=== PATIENT | female | born 1980 ===

== ENCOUNTER 2016-12-04 12:04 | Emergency (ER) | payer OTHER ==
[2016-12-04 13:03] VITALS: BP 155/78
--- NOTE | 2016-12-04 13:35 | UC ---
Abdominal Pain Female HPI - HPI Summary HPI Summary: 36 yo female with ruq/epigastric pain x3-4 days nausea no vomitng anorexia attempts to eat make it worse no f/c constipated states when she took naproxen in the past it made her flu symptoms worse no true allergy no cp/sob PT HAS NO LOCAL MD - History of Current Complaint Chief Complaint: UCAbdominalPain Stated Complaint: STOMACH PAIN Time Seen by Provider: 12/04/16 13:07 Hx Last Menstrual Period: 11/25/16 Onset/Duration: Gradual Onset, Lasting Days Timing: Constant Severity Initially: Moderate Severity Currently: Moderate Pain Intensity: 8 Pain Scale Used: 0-10 Numeric Location: Discrete At: RUQ, Epigastric Radiates: Yes Radiates to: Back Character: Colicy Aggravating Factor(s): Food Alleviating Factor(s): Nothing Associated Signs and Symptoms: Positive: Decreased Appetite, Nausea Allergies/Adverse Reactions: Allergies Allergy/AdvReac Type Severity Reaction Status Date / Time Naproxen Allergy See Comment Verified 12/04/16 13:04 Home Medications: Home Medications Ibuprofen TAB* [Motrin TAB* 800 MG] 800 mg PO BID PRN 12/04/16 [History Confirmed 12/04/16] Sennosides [Laxative Pills Regular St] 15 mg PO DAILY PRN 12/04/16 [History Confirmed 12/04/16] Simethicone [Gas-X] 80 mg PO ONCE PRN 12/04/16 [History Confirmed 12/04/16] PMH/Surg Hx/FS Hx/Imm Hx Previously Healthy: Yes Cardiovascular History Of: Reports: Hypertension - Surgical History Surgical History: Yes Surgery Procedure, Year, and Place: x3 c section. tubal - Family History Known Family History: Positive: Hypertension - Social History Alcohol Use: Weekly Substance Use Type: Marijuana Smoking Status (MU): Heavy Every Day Tobacco Smoker Amount Used/How Often: 1 ppd Length of Time of Smoking/Using Tobacco: started age 18 Review of Systems Constitutional: Negative Skin: Negative Eyes: Negative ENT: Negative Respiratory: Negative Cardiovascular: Negative Gastrointestinal: Abdominal Pain Genitourinary: Negative Motor: Negative Neurovascular: Negative Musculoskeletal: Negative Neurological: Negative Psychological: Negative All Other Systems Reviewed And Are Negative: Yes Physical Exam Triage Information Reviewed: Yes Appearance: Well-Appearing, No Pain Distress Vital Signs: Initial Vital Signs Temp 98.0 F 12/04/16 12:59 Pulse 62 12/04/16 12:59 Resp 14 12/04/16 12:59 BP 155/78 12/04/16 12:59 Pulse Ox 95 12/04/16 12:59 Vital Signs Reviewed: Yes Eyes: Positive: Conjunctiva Clear ENT: Positive: Hearing grossly normal. Negative: Nasal congestion, Nasal drainage, Trismus, Muffled/hoarse voice Neck: Positive: Supple, Nontender, No Lymphadenopathy Respiratory: Positive: Lungs clear, Normal breath sounds, No respiratory distress, No accessory muscle use Cardiovascular Exam: Normal Cardiovascular: Positive: RRR Abdomen Description: Positive: Soft. Negative: Nontender - ruq/epigastric tenderness, Distended, Guarding, Hernia @, Hepatomegaly, McBurney's Point Tenderness, Peritoneal Signs, Pulsatile Mass, Splenomegaly Bowel Sounds: Positive: Present Musculoskeletal: Positive: ROM Intact, No Edema Neurological: Positive: Alert Psychological Exam: Normal Skin Exam: Normal Re-Evaluation - Re-Evaluation First Eval Re-Evaluation Time: 14:51 Change: Improved - PAIN NOW 2-12/13 Abd Pain Female Course/Dx - Differential Dx/Diagnosis Provider Diagnoses: CHOLECYSTITIS Discharge - Discharge Plan Condition: Stable Disposition: AGAINST MEDICAL ADVICE Prescriptions: HYDROcodone/ACETAMIN 5-325 MG* [[facility] 5-325 TAB*] 1 tab PO Q4H PRN #15 tab MDD 6 PRN Reason: Pain Ondansetron TAB* [Zofran Tab*] 4 mg PO Q6H PRN #10 tab PRN Reason: Nausea Patient Education Materials: Cholecystitis (ED) Referrals: Mervin Tijerina MD [Medical Doctor] - As Soon As Possible Additional Instructions: YOUR ULTRASOUND SHOWED: A 3.3 CM STONE AT THE GALLBLADDER NECK A LOT OF BILIARY SLUDGE A THICKENED GALL BLADDER WALL YOU NEED TO SEE A SURGEON TAKE COPIES OF ULTRASOUND WITH YOU TO ER FOR: INCREASED PAIN VOMITING FEVER IF YOU CAN NOT MAKE A TIMELY APPT CALL US BACK YOU MIGHT WANT TO TAKE A STOOL SOFTENER AT BEDTIME (LIKE COLACE)
[2016-12-04] MEDS ORDERED: Ketorolac INJ* 30 MG/ML 1 ML VIAL IM ONE (13:40)
--- NOTE | 2016-12-04 14:34 | RAD ---
Indication: Epigastric RIGHT upper quadrant pain. Constipation. Comparison: None. Technique: RIGHT upper quadrant ultrasound. Report: 18.3 cm normal echotexture liver. No focal hepatic lesions or biliary dilatation. 5.8 mm common bile duct. Distended gallbladder with large volume of biliary sludge and a 3.3 cm nonmobile appearing stone at the level of the gallbladder neck. 3.9 mm thickened gallbladder wall. Negative for pericholecystic fluid. Positive for sonographic Neves's sign. Unremarkable pancreas. Negative for ascites. Unremarkable 12.8 cm RIGHT kidney. IMPRESSION: The constellation of findings is concerning for early acute cholecystitis. Negative for associated biliary dilatation. Correlate with clinical assessment.
[2016-12-04 19:23] LABS: Hematocrit 44 % (35-47); Hemoglobin 14.6 g/dl (12.0-16.0); Mean Corpuscular HGB Conc 33 g/dl (31-36); Mean Corpuscular Hemoglobin 31 pg (27-31); Mean Corpuscular Volume 93 fL (80-97); Mean Platelet Volume 8 um3 (7.4-10.4); Red Blood Count 4.72 10^6/ul (4.0-5.4); Red Cell Distribution Width 14 % (10.5-15); White Blood Count 13.6 10^3/ul (3.5-10.8)
[2016-12-04 19:38] LABS: Albumin 4.4 g/dL (3.2-5.2); BUN/Creatinine Ratio 17.5 (8-20); Calcium 9.6 mg/dL (8.6-10.3); EGFR African American 155.2 (>60); EGFR Non-African American 120.7 (>60); Globulin 2.9 g/dL (2-4); Potassium 4.6 mmol/L (3.5-5.0); Total Bilirubin 0.5 mg/dL (0.2-1.0); Total Protein 7.3 g/dL (6.4-8.9)
== END 2016-12-04 15:13 | disposition left against medical advice (07) ==
LOC: UCCORT 12:04
DX: K81.0 Acute cholecystitis (principal); Z88.6 Allergy status to analgesic agent; F17.210 Nicotine dependence, cigarettes, uncomplicated
CPT/HCPCS: 36415; 76705; 80053; 83690; 85025; 96372; 99202; G0463; J1885

== ENCOUNTER 2017-01-16 11:31 | Emergency (ER) | payer OTHER ==
[2017-01-16 13:22] VITALS: BP 135/71
[2017-01-16] MEDS ORDERED: Tetan/Diph/Pertus SYR(Tdap)* 0.5 ML SYR(BOOSTRIX) use SYR IM ONE (13:39)
[2017-01-16] MEDS ORDERED: Lidocaine 2% PF* 5 ML VIAL ONE (13:59)
--- NOTE | 2017-01-16 14:27 | UC ---
Laceration HPI - HPI Summary HPI Summary: 10AM CUT TO LEFT INDEX FINGER WITH NEW KNIFE. LAST TETANUS SHOT UNKNOWN. BLEEDING CONTROLLED AT TIME OF CLINICAL VISIT - History Of Current Complaint Chief Complaint: UCLaceration Stated Complaint: LEFT INDEX FINGER LACERATION Time Seen by Provider: 01/16/17 13:34 Hx Obtained From: Patient Laceration Location: Finger - LEFT SECOND FINGER Mechanism Of Injury: Sharp Trauma Onset/Duration: Sudden Onset, Lasting Hours, Still Present Severity: Mild Aggravating Factors: Position, Movement Hands: 1 - LACERATION HERE 2 - LACERATION HERE Related History: Dominant Hand Right - Allergies/Home Medications Allergies/Adverse Reactions: Allergies Allergy/AdvReac Type Severity Reaction Status Date / Time Naproxen Allergy See Comment Verified 01/16/17 13:22 PMH/Surg Hx/FS Hx/Imm Hx Previously Healthy: Yes Cardiovascular History Of: Reports: Hypertension - Surgical History Surgical History: Yes Surgery Procedure, Year, and Place: x3 c section. tubal. Gall bladder - Family History Known Family History: Positive: Hypertension - Social History Occupation: Employed Part-time - SAHM Lives: With Family Alcohol Use: Weekly Substance Use Type: Marijuana Smoking Status (MU): Heavy Every Day Tobacco Smoker Amount Used/How Often: 1 ppd Length of Time of Smoking/Using Tobacco: started age 18 Cessation Counseling: Patient Advised to Stop Review of Systems Constitutional: Negative Skin: Other - LACERATION LEFT SECOND FINGER Eyes: Negative ENT: Negative Respiratory: Negative Cardiovascular: Negative Gastrointestinal: Negative Genitourinary: Negative Motor: Negative Neurovascular: Negative Musculoskeletal: Negative Neurological: Negative Psychological: Negative All Other Systems Reviewed And Are Negative: Yes Physical Exam Triage Information Reviewed: Yes Appearance: Well-Appearing, No Pain Distress, Well-Nourished Vital Signs: Initial Vital Signs Temp 98.2 F 01/16/17 13:16 Pulse 60 01/16/17 13:16 Resp 16 01/16/17 13:16 BP 135/71 01/16/17 13:16 Pulse Ox 100 01/16/17 13:16 Vital Signs Reviewed: Yes Eye Exam: Normal ENT Exam: Normal ENT: Positive: Normal ENT inspection, Hearing grossly normal, Pharynx normal, TMs normal Dental Exam: Normal Neck exam: Normal Neck: Positive: Supple, Nontender, No Lymphadenopathy Respiratory Exam: Normal Respiratory: Positive: Chest non-tender, Lungs clear, Normal breath sounds, No respiratory distress, No accessory muscle use Cardiovascular Exam: Normal Cardiovascular: Positive: RRR, No Murmur, Pulses Normal Abdominal Exam: Normal Abdomen Description: Positive: Nontender, No Organomegaly Musculoskeletal Exam: Normal Musculoskeletal: Positive: Strength Intact, ROM Intact Neurological Exam: Normal Psychological Exam: Normal Psychological: Positive: Normal Response To Family Skin: Positive: Other - LACERATION LEFT SECOND FINGER Laceration Repair - Laceration Repair 1 Description: Linear Laceration Size After Repair: Length (cm) - 1.5, Width (mm) - 5, Depth (mm) - 8 Type Injection: Digital Anesthesia Used: 2.0% Lido Cleansing Completed Via Routine Prep: Yes Irrigation With Pressure Irrigation Device: Yes Closure Material: Sutures Closure Method: Single Layer Suture Of: Skin, SQ Suture Type: Prolene - 3 X 4-0 PROLENE Laceration Course/Dx - Differential Dx - Laceration/Wound Differental Diagnoses: Cellulitis, Laceration, Tendon Laceration Provider Diagnoses: LACERATION REPAIR OF LEFT SECOND FINGER. TETANUS PROPHYLAXIS Discharge - Discharge Plan Condition: Stable Disposition: HOME Patient Education Materials: Finger Laceration (ED) Referrals: [facility] [[place]] Non Staff,Doctor [Primary Care Provider] - Additional Instructions: PLEASE HAVE SUTURES REMOVED IN TEN DAYS
== END 2017-01-16 14:30 | disposition home or self-care (01) ==
LOC: UCCORT 11:31
DX: S61.211A Laceration without foreign body of left index finger without damage to nail, initial encounter (principal); W26.0XXA Contact with knife, initial encounter; Y93.9 Activity, unspecified; Y92.9 Unspecified place or not applicable; Z23 Encounter for immunization; I10 Essential (primary) hypertension; Z90.49 Acquired absence of other specified parts of digestive tract; Z88.6 Allergy status to analgesic agent; F17.210 Nicotine dependence, cigarettes, uncomplicated
CPT/HCPCS: 12001; 90471; 90715; 99211; G0463

== ENCOUNTER 2017-08-27 10:52 | Emergency (ER) | payer OTHER ==
[2017-08-27 11:26] VITALS: BP 135/85
--- NOTE | 2017-08-27 12:08 | UC ---
UC Dental HPI - HPI Summary HPI Summary: pt c/o left lower jaw swelling and tenderness. Pt has history of dental laya in affected tooth but did not follow up with dentist. NOw has appointment with dentist on 09/16/17 - History of Current Complaint Chief Complaint: UCDentalProblem Stated Complaint: DENTAL COMPLAINT Time Seen by Provider: 08/27/17 11:32 Hx Obtained From: Patient Hx Last Menstrual Period: 08/06/17 Onset/Duration: Gradual Onset, Lasting Days Pain Intensity: 7 Pain Scale Used: 0-10 Numeric Aggravating Factor(s): Heat, Cold, Chewing Related History: Previous Dental Care on Same Tooth, Swelling - Allergies/Home Medications Allergies/Adverse Reactions: Allergies Allergy/AdvReac Type Severity Reaction Status Date / Time Naproxen Allergy See Comment Verified 08/27/17 11:26 Home Medications: Home Medications Acetaminophen [Acetaminophen Extra Stren] 1,000 mg PO ONCE 08/27/17 [History Confirmed 08/27/17] PMH/Surg Hx/FS Hx/Imm Hx Previously Healthy: Yes - Surgical History Surgical History: Yes Surgery Procedure, Year, and Place: x3 c section. tubal. Gall bladder - Family History Known Family History: Positive: Hypertension - Social History Occupation: Employed Full-time Lives: With Family Alcohol Use: Occasionally Substance Use Type: Marijuana Smoking Status (MU): Heavy Every Day Tobacco Smoker Amount Used/How Often: 1 ppd Length of Time of Smoking/Using Tobacco: started age 18 Have You Smoked in the Last Year: Yes Review of Systems Constitutional: Negative Skin: Negative Eyes: Negative ENT: Dental Pain, Ear Ache - left ear Respiratory: Negative Cardiovascular: Negative Gastrointestinal: Negative Genitourinary: Negative Motor: Negative Neurovascular: Negative Musculoskeletal: Negative Neurological: Negative Psychological: Negative Is Patient Immunocompromised?: No All Other Systems Reviewed And Are Negative: Yes Physical Exam Triage Information Reviewed: Yes Appearance: Pain Distress Vital Signs: Initial Vital Signs Temp 97.9 F 08/27/17 11:21 Pulse 70 08/27/17 11:21 Resp 16 08/27/17 11:21 BP 135/85 08/27/17 11:21 Pulse Ox 99 08/27/17 11:21 Vital Signs Reviewed: Yes Eye Exam: Normal ENT Exam: Normal Dental Exam: Other Dental: Positive: Gross Decay/Caries @, Dental Fracture @, Abscess @ - left lower jaw, molar Neck exam: Normal Neck: Positive: Supple Respiratory Exam: Normal Cardiovascular Exam: Normal Musculoskeletal Exam: Normal Neurological Exam: Normal Psychological Exam: Normal Skin Exam: Normal Dental Complaint Course/Dx - Differential Dx/Diagnosis Differential Diagnosis/Dx: Dental Abscess, Dental Caries, Fractured Tooth Provider Diagnoses: dental abscess Discharge - Discharge Plan Condition: Stable Disposition: HOME Prescriptions: Amoxicillin PO (*) [Amoxicillin 875 MG (*)] 875 mg PO Q12H #20 tab Ibuprofen TAB* [Motrin TAB* 800 MG] 800 mg PO Q8H PRN #30 tab PRN Reason: Pain Lidocaine 2% VISCOUS* [Xylocaine 2% Viscous*] 15 ml SWISH SPIT Q4H PRN #1 btl PRN Reason: Pain methylPREDNISolone TAB* [Medrol TAB*] 4 - 8 mg PO .SEE GAMALIEL #1 gamaliel Patient Education Materials: Dental Abscess (ED) Referrals: Non Staff,Doctor [Primary Care Provider] - If Needed Additional Instructions: Please follow up with your Dental Care provider as scheduled on 09/16/17 or earlier if possible.
== END 2017-08-27 11:48 | disposition home or self-care (01) ==
LOC: UCCORT 10:52
DX: K04.7 Periapical abscess without sinus (principal); Z88.6 Allergy status to analgesic agent; F12.90 Cannabis use, unspecified, uncomplicated; F17.210 Nicotine dependence, cigarettes, uncomplicated
CPT/HCPCS: 99212; G0463